=== PATIENT | female | born 1975 | race African-American/Black ===

== ENCOUNTER 2017-11-16 18:30 | Emergency (ER) | payer OTHER ==
[2017-11-16 18:39] VITALS: BP 129/83; PULSE 108; BMI 27.8
--- NOTE | 2017-11-16 19:06 | PDOC ---
History of Present Illness - General History Source: Patient Exam Limitations: No Limitations - History of Present Illness Initial Comments: 11/16/17 19:18 The patient is a 42 year old female with no significant past medical history who presents to the ED with multiple days of cough and body aches. She reports pain especially to her back and her chest when she coughs. The patient reports that 3 weeks ago she had Bronchitis in which she was being treated with a Z pack. She denies taking anything for pain. She denies any nausea, vomiting, diarrhea, SOB, CP, or urinary symptoms. PAST MEDICAL HISTORY: no significant history PAST SURGICAL HISTORY: no significant history FAMILY HISTORY: no pertinent history SOCIAL HISTORY: Pt lives with family and is employed. MEDICATIONS: reviewed ALLERGIES: As per nursing notes REVIEW OF SYSTEMS: General: Present: fever No chills, no weakness, no weight loss HEENT: No change in vision. No sore throat,. No ear pain CardioVascular: Present: chest pain No shortness of breath Respiratory: Present: cough No wheezing. Gastrointestinal: no nausea, vomiting, diarrhea or constipation, No rectal bleeding Genitourinary: No dysuria, hematuria, or frequency Musculoskeletal: Present: body aches Neurologic: No headache, vertigo, dizziness or loss of consciousness Psychiatric: nor depression Skin: No rashes or easy bruising Endocrine: no increased thirst or abnormal weight change Allergic: no skin or latex allergy All other systems reviewed and normal PHYSICAL EXAM: General: Well-nourished well-developed individual, no acute distress HEENT: Throat: Mild erythema in posterior oropharynx. Tonsils normal, no erythema or exudate. No lesions Neck: Supple, no meningeal signs, no lymphadenopathy Eyes::Pupils equal reactive and round, extraocular motion intact Chest: Nontender to palpation Cardiac: S1-S2 normal, regular rate and rhythm, no murmurs rubs or gallops Respiratory: Lungs clear to auscultation bilateral Abdomen: Soft, nondistended, normal bowel sounds, nontender to palpation diffusely Extremities: Warm, dry, no cyanosis, clubbing, or edema Skin: No rashes Neuro: Alert and oriented x3, nonfocal exam, grossly intact, normal gait Psych: Normal mood and affect 11/16/17 19:35 <Malgorzata Neville - Last Filed: 11/16/17 19:35> - General History Source: Patient Exam Limitations: No Limitations - History of Present Illness Initial Comments: A portion of this note was documented by scribe services under my direction. I have reviewed the details of the note, within reason, and agree with the documentation. The case summary and management plan written by me. Assessment and plan: This is a 42-year-old female who comes in complaining of upper respiratory viral type symptoms. Patient has some mild posterior oropharynx erythema but otherwise a normal exam. Patient had a flu swab sent that was negative for influenza. Patient was reassured that this is viral in nature and needed nothing more than supportive care including fluids, rest, Tylenol or Motrin for pain and fevers. <Chris Dennison I - Last Filed: 11/16/17 20:49> - General Chief Complaint: Pain Stated Complaint: BODY ACHES Time Seen by Provider: 11/16/17 19:04 Past History <Malgorzata Neville - Last Filed: 11/16/17 19:35> - Past Medical History COPD: No - Suicide/Smoking/Psychosocial Hx Smoking Status: No Smoking History: Never smoked Have you smoked in the past 12 months: No Number of Cigarettes Smoked Daily: 0 Information on smoking cessation initiated: No Hx Alcohol Use: Yes (OCCASIONAL) Drug/Substance Use Hx: No Substance Use Type: None <Chris Dennison I - Last Filed: 11/16/17 20:49> - Past Medical History Allergies/Adverse Reactions: Allergies Allergy/AdvReac Type Severity Reaction Status Date / Time No Known Allergies Allergy Verified 07/05/14 10:52 Home Medications: Ambulatory Orders l-Norgest/E.estradiol-E.estrad [Seasonique 0.15-0.03-0.01 Tab] 1 each PO DAILY 11/16/17 Review of Systems - Review of Systems Able to Perform ROS?: Yes All Other Systems: Reviewed and Negative <Malgorzata Neville - Last Filed: 11/16/17 19:35> *Physical Exam - Vital Signs Last Vital Signs Temp Pulse Resp BP Pulse Ox 100.9 F H 108 H 16 129/83 99 11/16/17 18:31 11/16/17 18:31 11/16/17 18:31 11/16/17 18:31 11/16/17 18:31 <Malgorzata Neville - Last Filed: 11/16/17 19:35> - Vital Signs Last Vital Signs Temp Pulse Resp BP Pulse Ox 100.9 F H 108 H 16 129/83 99 11/16/17 18:31 11/16/17 18:31 11/16/17 18:31 11/16/17 18:31 11/16/17 18:31 <Chris Dennison I - Last Filed: 11/16/17 20:49> *DC/Admit/Observation/Transfer - Attestations Scribe Attestion: 11/16/17 19:25 Documentation prepared by Malgorzata Neville, acting as medical director/head team physician for Chris Dennison MD. <Malgorzata Neville - Last Filed: 11/16/17 19:35> - Discharge Dispostion Admit: No <Chris Dennison I - Last Filed: 11/16/17 20:49> Diagnosis at time of Disposition: Viral upper respiratory illness - Discharge Dispostion Disposition: HOME Condition at time of disposition: Good - Referrals Referrals: Yobany Huitron MD [Primary Care Provider] - - Patient Instructions Additional Instructions: For body aches and fever take Tylenol or Motrin as directed on the bottle. Stay well hydrated and get plenty of rest much as possible. Return to the emergency department immediately with ANY new, persistent or worsening symptoms. Continue any medications as previously prescribed by your physician. You should follow up with your primary doctor as soon as possible regarding today's emergency department visit. . Please make sure your doctor reviews the results of your emergency evaluation. Thank you for coming to the Emergency Department today for your care. It was a pleasure to see you today. Please note that your evaluation is INCOMPLETE until you follow-up with your doctor. - Post Discharge Activity Forms/Work/School Notes: Back to Work
[2017-11-16] MEDS ORDERED: ACETAMINOPHEN 500 MG TABLET (FP) PO ONE (19:11)
[2017-11-16] MEDS ORDERED: ACETAMINOPHEN 500 MG TABLET (FP) ONE (19:13)
[2017-11-16 19:30] LABS: PH,URINE 7.5 (4.5-8); URINE APPEARANCE Clear; URINE BILIRUBIN Negative (NEGATIVE); URINE BLOOD Negative (NEGATIVE); URINE COLOR YELLOW; URINE GLUCOSE (UA) Negative (NEGATIVE); URINE KETONE Negative (NEGATIVE); URINE NITRITE Negative (NEGATIVE); URINE PROTEIN Negative (NEGATIVE)
[2017-11-16 19:31] LABS: HCG,QUALITATIVE URINE NEGATIVE
[2017-11-16 19:47] VITALS: TEMP 99.8
== END 2017-11-16 19:59 | disposition home or self-care (01) ==
LOC: FER 18:30
DX: J06.9 Acute upper respiratory infection, unspecified (principal); B97.89 Other viral agents as the cause of diseases classified elsewhere
CPT/HCPCS: 81003; 84703; 87804; 99282-25

== ENCOUNTER → 2021-02-01 | Day surgery (SDC) | payer OTHER | END | disposition home or self-care (01) | LOC: JRADUS-SUR 10:07 | PROVIDERS: ATTEND Midwife | PROC: 0H9T3ZX Drainage of Right Breast, Percutaneous Approach, Diagnostic (ICD-10-PCS; principal; 2021-02-01) | DX: N60.21 Fibroadenosis of right breast (principal) | CPT/HCPCS: 19083; 77065-TC; 87899; A4648 ==

== ENCOUNTER → 2023-02-22 | Day surgery (SDC) | payer OTHER ==
[2023-02-15 15:39] VITALS: BMI 29.8
[~2023-02-22] MED LIST: ACETAMINOPHEN 1000 MG/100 ML BAG IVPB ONE; ACETAMINOPHEN INJECTION 100 ML IVPB ONE; AMIODARONE HCL 150 MG/3 ML VIAL ONE; BENZOCAINE/MENTH/CETYLPYRD CL 1 EACH LOZENGE MM PRN; BENZOCAINE/MENTHOL 1 EACH LOZENGE MM ONE; BUPIVACAINE HCL/PF 0.25% (2.5MG/ML) 10 ML VIAL IJ ONE; BUPIVACAINE HCL/PF 0.25% (2.5MG/ML) 10 ML VIAL ONE; DEXAMETHASONE SOD PHOSPHATE 4 MG/1 ML VIAL ONE; GLYCOPYRROLATE 0.2 MG/1 ML VIAL ONE; IBUPROFEN 800 MG/8 ML IJ IVPB ONE; LACTATED RINGERS SOLUTION 1,000 ML IV SCH; LIDOCAINE HCL/PF 2% SDV 5ML VIAL ONE; MIDAZOLAM HCL 2 MG/2 ML SINGLE DOSE VIAL ONE; NEOSTIGMINE METHYLSULFATE 0.5 MG/1 ML - 10 ML MDV ONE; ONDANSETRON 4 MG/2 ML VIAL IVPUSH PRN; ONDANSETRON 4 MG/2 ML VIAL ONE; PROPOFOL 20 ML ONE; ROCURONIUM BROMIDE 50 MG/5 ML SYRINGE ONE; oxyCODONE HCL 5 MG TABLET PO PRN
[2023-02-22] MEDS: IBUPROFEN 800 MG/8 ML IJ IVPB PRN ×2 (11:31→11:38)
[2023-02-22 12:54] VITALS: RESP 16
[2023-02-22 14:29] VITALS: BP 165/80; PULSE 88; TEMP 97.5
== END | disposition home or self-care (01) ==
LOC: JASU-SURG 04:20
PROVIDERS: ATTEND Obstetrics & Gynecology
PROC: 0UB74ZZ Excision of Bilateral Fallopian Tubes, Percutaneous Endoscopic Approach (ICD-10-PCS; principal; 2023-02-22 10:30)
DX: Z30.2 Encounter for sterilization (principal)
CPT/HCPCS: 81025; 88302-TC; 94760

== ENCOUNTER 2024-04-20 04:07 | Day surgery (SDC) | payer OTHER ==
[2024-04-17 08:53] VITALS: BMI 30.2
[2024-04-20 08:05] VITALS: TEMP 98
[2024-04-20 10:14] VITALS: RESP 20
[2024-04-20 10:35] VITALS: BP 121/81; PULSE 64
== END 2024-04-20 11:03 | disposition home or self-care (01) ==
LOC: JASU-ENDO 04:07
PROVIDERS: ATTEND Internal Medicine Gastroenterology
PROC: 3E0H8KZ Introduction of Other Diagnostic Substance into Lower GI, Via Natural or Artificial Opening Endoscopic (ICD-10-PCS; 2024-04-20)
PROC: 0DBK8ZX Excision of Ascending Colon, Via Natural or Artificial Opening Endoscopic, Diagnostic (ICD-10-PCS; principal; 2024-04-20 08:30)
DX: Z12.11 Encounter for screening for malignant neoplasm of colon (principal); D12.2 Benign neoplasm of ascending colon; K64.8 Other hemorrhoids
CPT/HCPCS: 81025; 88305-TC

== ENCOUNTER 2024-08-03 05:05 | Day surgery (SDC) | payer OTHER ==
[2024-07-31 11:28] VITALS: BMI 29.2
[2024-08-03 08:35] VITALS: TEMP 98
[2024-08-03 09:07] VITALS: RESP 18
[2024-08-03 09:11] VITALS: BP 116/66; PULSE 63
== END 2024-08-03 09:28 | disposition home or self-care (01) ==
LOC: JASU-ENDO 05:05
PROVIDERS: ATTEND Internal Medicine Gastroenterology
PROC: 0DBK8ZX Excision of Ascending Colon, Via Natural or Artificial Opening Endoscopic, Diagnostic (ICD-10-PCS; principal; 2024-08-03 08:00)
DX: Z87.19 Personal history of other diseases of the digestive system (principal); K63.5 Polyp of colon; K64.8 Other hemorrhoids; K57.30 Diverticulosis of large intestine without perforation or abscess without bleeding
CPT/HCPCS: 88305-TC